=== PATIENT | female | born 1965 ===

== ENCOUNTER 2018-12-30 14:53 | Emergency (ER) | payer OTHER ==
[2018-12-30 15:24] VITALS: BP 115/68
--- NOTE | 2018-12-30 15:25 | UC ---
Knee Pain HPI - HPI Summary HPI Summary: 53 yo with twisting injury to the right knee x 4 days ago, twisted knee while walking on level ground with swelling following the injury. Has waited it out, but still has pain and swelling and was not able to work yesterday. - History of Current Complaint Chief Complaint: UCLowerExtremity Stated Complaint: FOOT COMPLAINT Time Seen by Provider: 12/30/18 15:14 Hx Obtained From: Patient, Family/Child Life Specialist ?: No Onset/Duration: Sudden Onset Severity Initially: Moderate Severity Currently: Moderate Pain Intensity: 5 Character: Aching, Stiffness Aggravating Factor(s): Weight Bearing, Stairs Alleviating Factor(s): Position, OTC Meds - taking ibuprofen 400mg twice daily helps with pain. Associated Signs And Symptoms: Positive: Swelling Able to Bear Weight: Yes - Risk Factors Septic Arthritis Risk Factor: Negative Gout Risk Factor: Negative - Allergies/Home Medications Allergies/Adverse Reactions: Allergies Allergy/AdvReac Type Severity Reaction Status Date / Time No Known Allergies Allergy Verified 12/30/18 15:24 Home Medications: Home Medications NK [No Home Medications Reported] 12/30/18 [History Confirmed 12/30/18] PMH/Surg Hx/FS Hx/Imm Hx Previously Healthy: Yes - overweight - Surgical History Surgical History: None - Family History Known Family History: Positive: Unknown - limited by language., Non-Contributory - Social History Alcohol Use: None Substance Use Type: None Smoking Status (MU): Never Smoked Tobacco Review of Systems All Other Systems Reviewed And Are Negative: Yes Constitutional: Positive: Negative Skin: Positive: Negative Eyes: Positive: Negative Musculoskeletal: Positive: Arthralgia, Other: - + right knee swelling. Neurological: Positive: Negative Psychological: Positive: Negative Is Patient Immunocompromised?: No Physical Exam Triage Information Reviewed: Yes Appearance: Well-Appearing, Pain Distress - mild Vital Signs: Initial Vital Signs Temp 98.7 F 12/30/18 15:18 Pulse 67 12/30/18 15:18 Resp 16 12/30/18 15:18 BP 115/68 12/30/18 15:18 Pulse Ox 97 12/30/18 15:18 Neck: Positive: Supple, Nontender, No Lymphadenopathy Respiratory: Positive: Lungs clear, Normal breath sounds Cardiovascular: Positive: RRR, Murmur:Sys:Grade _?_/ - possible soft murmur left sternal border without radiation. Musculoskeletal Exam: Other - mildly antalgic gait. Right knee with small to moderate effusion, tenderness along the medial and lateral joint lines. Musculoskeletal: Positive: ROM Limited @ - Can flex to 90 degrees with mild pain at end of range of motion. Full extension. Neg Lachmann's, mild tenderness with medial stress with Mac Crow's. Neurological Exam: Normal Neurological: Positive: Alert, Muscle Tone Normal Psychological Exam: Normal Skin Exam: Normal Diagnostics - Radiology No standard instances Radiology Interpretation Completed By: Radiologist Summary of Radiographic Findings: Per Dr. Olivares: normal knee, no effusion. Knee Pain Course/Dx - Course Course Of Treatment: MICH wrap to knee, begin use of ice. Clinically consistent with knee strain, likely medial collateral ligament. Discussed conservative management of rest, ice, MICH wrap. PT referral if needed. - Differential Dx/Diagnosis Differential Diagnosis/HQI/PQRI: Sprain, Strain, Tendonitis Provider Diagnosis: Strain of right knee Discharge ED - Sign-Out/Discharge Documenting (check all that apply): Patient Departure All imaging exams completed and their final reports reviewed: Yes - Discharge Plan Condition: Good Disposition: HOME Patient Education Materials: Knee Pain (ED) Referrals: No Primary Care Phys,NOPCP [Primary Care Provider] - Additional Instructions: You can wrap your knee as needed with the MICH wrap. Ice your knee for 20 minutes every 2 to 3 hours --this will help with the swelling. Use ibuprofen 3 tablets = 600mg up to three times per day, with food. Stop if it is upsetting your stomach. If you continued knee pain beyond the weekend, you can begin physical therapy. - Billing Disposition and Condition Condition: GOOD Disposition: Home
== END 2018-12-30 16:38 | disposition home or self-care (01) ==
LOC: MERGE 14:53 → UCEAST 14:53
DX: S86.911A Strain of unspecified muscle(s) and tendon(s) at lower leg level, right leg, initial encounter (principal); X50.9XXA Other and unspecified overexertion or strenuous movements or postures, initial encounter; Y92.9 Unspecified place or not applicable
CPT/HCPCS: 99202; G0463